=== PATIENT | male | born 1960 | race African-American/Black ===

== ENCOUNTER 2018-08-14 06:51 | Emergency (ER) | payer OTHER ==
[2018-08-14] MEDS ORDERED: DIPHTH,PERTUSS(ACELL),TET 0.5 ML DISP.SYRIN IM ONE (07:54)
--- NOTE | 2018-08-14 08:05 | PDOC ---
History of Present Illness - General Chief Complaint: Injury Stated Complaint: LACERATION TO RIGHT EYE -LEFT ELBOW Time Seen by Provider: 08/14/18 07:54 History Source: Patient Exam Limitations: No Limitations - History of Present Illness Initial Comments: 08/14/18 08:02 57-year-old male presents to ED status post injury to his left elbow and right side of face. Patient states was walking when he ran into a door frame them causing him to limp backwards on his elbow. Patient states he is not up-to-date on tetanus and denies any other complaints including visual changes, headache or dizziness. Occurred: reports: just prior to arrival Severity: reports: mild Pain Location: reports: face, upper extremity Method of Injury: Yes: direct blow Modifying Factors: improves with: None Loss of Consciousness: no loss of consciousness Associated Symptoms (Fall): denies symptoms Past History - Travel Traveled outside of the country in the last 30 days: No - Past Medical History Allergies/Adverse Reactions: Allergies Allergy/AdvReac Type Severity Reaction Status Date / Time No Known Allergies Allergy Verified 08/14/18 07:21 COPD: No Other medical history: denies - Suicide/Smoking/Psychosocial Hx Smoking History: Never smoked Information on smoking cessation initiated: No Hx Alcohol Use: No Drug/Substance Use Hx: No Patient Lives Alone: No Lives with/in: spouse/SO Review of Systems - Review of Systems Able to Perform ROS?: Yes Constitutional: No: Symptoms Reported HEENTM: No: Symptoms Reported Musculoskeletal: Yes: Joint Pain, Joint Swelling (left elbow) Integumentary: Yes: See HPI Neurological: No: Symptoms reported Hematologic/Lymphatic: No: Symptoms Reported *Physical Exam - Vital Signs Last Vital Signs Temp Pulse Resp BP Pulse Ox 98.4 F 79 18 124/83 98 08/14/18 07:19 08/14/18 07:19 08/14/18 07:19 08/14/18 07:19 08/14/18 07:19 - Physical Exam General Appearance: Yes: Nourished, Appropriately Dressed. No: Apparent Distress HEENT: positive: EOMI, DILLAN Neck: positive: Supple. negative: Tender Extremity: positive: Normal Capillary Refill, Normal Range of Motion. negative : Normal Inspection (noted mild diffuse edema over the left elbow with a superficial abrasion to Center) Integumentary: positive: Other (noted 2 cm laceration to right temporal region lateral of eyebrow) Neurologic: positive: Motor Strength 5/5 ( ambulatory) Moderate Sedation - Procedure Monitoring Vital Signs: Procedure Monitoring Vital Signs Temperature 98.4 F 08/14/18 07:19 Pulse Rate 79 08/14/18 07:19 Respiratory Rate 18 08/14/18 07:19 Blood Pressure 124/83 08/14/18 07:19 O2 Sat by Pulse Oximetry (%) 98 08/14/18 07:19 Procedures - Laceration/Wound Repair Left Face Wound Length: to 2.5 cm Wound Explored: clean Wound's Depth, Shape: superficial, linear Irrigated w/ Saline: Yes Betadine Prep: Yes Anesthesia: 1% Lidocaine w/ Epi Amount of Anesthetic (ccs): 1 Wound Repaired With: Sutures Suture Size/Type: 6:0 Number of Sutures: 6 Sterile Dressing Applied: Yes ED Treatment Course - RADIOLOGY Radiology Studies Ordered: Category Date Time Status ELBOW-LEFT [RAD] Stat Radiology 08/14/18 07:54 Ordered Medical Decision Making - Medical Decision Making 08/14/18 08:05 Chief complaint: Laceration to right face and left elbow pain patient is not up- to-date on tetanus Exam: Laceration repair to be performed to right temporal region, edema noted over left elbow without crepitus or limited range of motion Plan: left elbow x-ray tetanus and laceration repair 08/14/18 08:29 Laceration repair done without difficulty. X-ray negative for acute pathology. Patient be discharged home with recommendations to follow up here in 7 days. Patient also ordered Tylenol secondary to discomfort to the left elbow. *DC/Admit/Observation/Transfer Diagnosis at time of Disposition: Facial laceration, Left elbow contusion - Discharge Dispostion Disposition: HOME Condition at time of disposition: Improved - Referrals - Patient Instructions Printed Discharge Instructions: DI for Laceration Repair -- Simple Additional Instructions: Apply ice to the affected areas much as you can tolerate for the next 3 days. Keep laceration covered with a Band-Aid. Return here in 5-7 days for suture removal. Observe for infection such as redness swelling or drainage from the site. If noted please return to the ED sooner. - Post Discharge Activity
[2018-08-14 08:14] VITALS: BP 124/83; PULSE 79; TEMP 98.4; BMI 25.0
[2018-08-14] MEDS ORDERED: ACETAMINOPHEN 500 MG TABLET (FP) PO ONE (08:30)
== END 2018-08-14 08:48 | disposition home or self-care (01) ==
LOC: JER 06:51
PROC: 3E0234Z Introduction of Serum, Toxoid and Vaccine into Muscle, Percutaneous Approach (ICD-10-PCS; principal; 2018-08-14)
PROC: 0HQ1XZZ Repair Face Skin, External Approach (ICD-10-PCS; 2018-08-14)
DX: S01.81XA Laceration without foreign body of other part of head, initial encounter (principal); S50.02XA Contusion of left elbow, initial encounter; W22.01XA Walked into wall, initial encounter; Y93.89 Activity, other specified; Y92.89 Other specified places as the place of occurrence of the external cause; Y99.8 Other external cause status
CPT/HCPCS: 73070-TC-LT-FY; 90715; 99281-25

== ENCOUNTER 2018-08-20 08:20 | Emergency (ER) | payer OTHER ==
[2018-08-20 08:36] VITALS: BP 117/77; PULSE 76; TEMP 97.9; BMI 25.8
--- NOTE | 2018-08-20 08:53 | PDOC ---
Suture Removal/Wound Check HPI - History of Present Illness Chief Complaint: Suture/Staple Removal(Here) Stated Complaint: SUTURE/STAPLE REMOVAL Time Seen by Provider: 08/20/18 08:50 History Source: Yes: Patient Exam Limitations: Yes: No Limitations Treated at: [facility] ED Date of Last ED visit: 08/14/18 - Previous ED Treatment Type of procedure performed on last visit: Yes: Laceration Repair Tetanus Immunization: Yes: Given at last ED visit Antibiotics Prescribed: No - Onset of Previous Treatment Date of Occurence: 08/14/18 Past History - Travel Traveled outside of the country in the last 30 days: No - Past Medical History Allergies/Adverse Reactions: Allergies Allergy/AdvReac Type Severity Reaction Status Date / Time No Known Allergies Allergy Verified 08/20/18 08:36 Home Medications: Ambulatory Orders Tramadol HCl 50 mg PO Q6H PRN #20 tablet MDD 4 tabs 08/20/18 COPD: No - Suicide/Smoking/Psychosocial Hx Smoking History: Never smoked Hx Alcohol Use: No Drug/Substance Use Hx: No Suture Removal/Wound Check PE - Physical Exam Laceration/Wound Check Symptoms: reports: None Location of Laceration/Wound: right: Face *Review of Systems - Review of Systems Constitutional: Yes: Symptoms Reported Musculoskeletal: Yes: Other (Left arm pain, not relieved by Tylenol per patient) *Physical Exam - Vital Signs Last Vital Signs Temp Pulse Resp BP Pulse Ox 97.9 F 76 16 117/77 98 08/20/18 08:33 08/20/18 08:33 08/20/18 08:33 08/20/18 08:33 08/20/18 08:33 - Physical Exam General Appearance: Yes: Nourished, Appropriately Dressed HEENT: positive: EOMI, DILLAN, Other (Laceration clean, dry, well approximated) Musculoskeletal: positive: Other (Left arm contusion (ecchymosis and tenderness ) medial to left elbow. Able to flex and extend at elbow. Able to pronate and supinate arm without difficulty.) Moderate Sedation - Procedure Monitoring Vital Signs: Procedure Monitoring Vital Signs Temperature 97.9 F 08/20/18 08:33 Pulse Rate 76 08/20/18 08:33 Respiratory Rate 16 08/20/18 08:33 Blood Pressure 117/77 08/20/18 08:33 O2 Sat by Pulse Oximetry (%) 98 08/20/18 08:33 Medical Decision Making - Medical Decision Making 08/20/18 09:11 A/P: 58-year-old male presenting for suture removal from face. Also with reported left elbow injury at the time of facial injury. X-ray at that time negative for fracture. Patient complaining of left arm pain unrelieved by Tylenol and cold packs. He reports that the last time he took ibuprofen he was hospitalized for GI bleed. Will advise continuation of Tylenol/ice packs with Tramadol for breakthrough pain. 6 sutures removed and bacitracin applied. Follow -up instructions and return precautions reviewed. *DC/Admit/Observation/Transfer Diagnosis at time of Disposition: Facial laceration Qualifiers: Encounter type: subsequent encounter Qualified Code(s): S01.81XD - Laceration without foreign body of other part of head, subsequent encounter Left elbow contusion Qualifiers: Encounter type: subsequent encounter Qualified Code(s): S50.02XD - Contusion of left elbow, subsequent encounter - Discharge Dispostion Disposition: HOME Condition at time of disposition: Stable Decision to Admit order: No - Prescriptions Prescriptions: Tramadol HCl 50 mg PO Q6H PRN #20 tablet MDD 4 tabs PRN Reason: Severe Pain - Referrals - Patient Instructions Printed Discharge Instructions: DI for Suture Removal Additional Instructions: -Keep the wound clean and dry. -Take Tylenol as needed for arm pain. Apply ice packs. Take Tramadol for severe pain when you are not driving or working. -Return here for redness, swelling, fever, or any other concerning symptoms. - Post Discharge Activity Forms/Work/School Notes: Back to Work
[2018-08-20] MEDS ORDERED: ACETAMINOPHEN 325 MG TABLET (FP) PO ONE (09:01)
[2018-08-20] MEDS ORDERED: ACETAMINOPHEN 325 MG TABLET (FP) ONE (09:09)
== END 2018-08-20 09:15 | disposition home or self-care (01) ==
LOC: JERFT 08:20
DX: Z48.817 Encounter for surgical aftercare following surgery on the skin and subcutaneous tissue (principal); Z48.02 Encounter for removal of sutures
CPT/HCPCS: 99281-25